=== PATIENT | male | born 1975 | race Two or more races ===

== ENCOUNTER 2023-06-02 22:17 | Inpatient (IN) | payer OTHER ==
[~2023-06-02] VITALS: Ht 162.6 cm; Wt 477.6 kg
[2023-06-02] MEDS ORDERED: 0.9 % SODIUM CHLORIDE 1,000 ML IV STA (22:36)
[2023-06-02] MEDS ORDERED: ZOFRAN8 MG (22:39)
[2023-06-02] MEDS ORDERED: CONZIP100 MG (22:40)
[2023-06-02] MEDS ORDERED: PERCOCET 5-3251 EACH (22:40)
[2023-06-02] MEDS ORDERED: PROTONIX40 MG (22:40)
[2023-06-02] MEDS ORDERED: FUROsemide 20 MG/2 ML VIAL IV SCH (23:34)
[2023-06-02] MEDS ORDERED: ONDANSETRON HCL 4 MG in 0.9 % SODIUM CHLORIDE 50 ML IV PRN (23:45)
[2023-06-02] MEDS ORDERED: 0.9 % SODIUM CHLORIDE 1,000 ML IV SCH (23:45)
[2023-06-02] MEDS ORDERED: ACETAMINOPHEN 500 MG GEL..CAP PO PRN (23:45)
[2023-06-03 00:40] LABS: INR 1.12; PARTIAL THROMBOPLASTIN TIME 26.3 SECONDS (22.0-34.0); PROTHROMBIN TIME 11.7 SECONDS (9.0-11.5)
[2023-06-03 00:44] LABS: ALBUMIN 2.5 gm/dL (3.4-5.0); BILIRUBIN TOTAL 0.32 mg/dL (0.3-1.2); CALCIUM 9.4 mg/dL (8.5-10.1); CREATININE SERUM 0.73 mg/dL (0.70-1.30); GFR 114.2; GLOBULINA 4.8 G/DL (2.4-3.5); POTASSIUM 4.37 mEq/L (3.5-5.1); TOTAL PROTEIN 7.3 gm/dL (6.4-8.2)
[2023-06-03 00:54] LABS: HEMATOCRIT 25.4 % (39.0-48.0); HEMOGLOBIN 8.1 g/dL (13-16.00); MEAN CELL VOLUME 93.1 fL (80.0-100.00); MEAN CORPUSCULAR HEMOGLOBIN 29.6 pg (27.00-32.0); MEAN CORPUSCULAR HGB CONC 31.8 g/dl (32.0-36.0); PLATELET COUNT 200 K/uL (150-450); RED BLOOD COUNT 2.73 M/uL (4.00-6.00); RED CELL DISTRIBUTION WIDTH 17.1 % (11.5-14.5)
[2023-06-03 01:24] LABS: PH,URINE 5.5 (5.0-8.0); URINE APPEARANCE Clear; URINE BILIRRUBIN Negative (NEGATIVE); URINE BLOOD Negative; URINE COLOR Yellow; URINE GLUCOSE Negative (NEGATIVE); URINE LEUKOCYTE Trace; URINE NITRATE Negative; URINE PROTEIN 30 (NEGATIVE)
[2023-06-03 01:27] LABS: URINE BACTERIA 17.6 uL (0.0-1933); URINE EPITHELIAL CELLS 9.8 uL (0.0-38.8); URINE RBC 8.6 uL (0.0-20.8); URINE WBC 13.1 uL (0.0-23.2)
[2023-06-03] MEDS ORDERED: IRON FUM,PS/FOLIC/BCOMP,C NO.9 1 CAP CAPSULE PO SCH (09:00)
[2023-06-03] MEDS ORDERED: PANTOPRAZOLE SODIUM 40 MG/VIAL VIAL IV SCH (09:00)
[2023-06-03] MEDS ORDERED: FUROsemide 20 MG/2 ML VIAL IV SCH (09:00)
[2023-06-03] MEDS ORDERED: ALBUMIN HUMAN 5% 0.05GM/ML (250ML) VIAL IV SCH (09:00)
[2023-06-03] MEDS ORDERED: ALBUMIN HUMAN IV SCH (17:00)
[2023-06-03] MEDS ORDERED: SPIRONOLACTONE 25 MG TABLET PO SCH (17:00)
[2023-06-03 20:58] LABS: ALBUMIN 1.5 gm/dL (3.4-5.0); TP PERITONEAL FLUID 3.4 g/dl
[2023-06-04] MEDS ORDERED: LACTULOSE 10 G/15 ML ML RECTAL ONE ×2 (07:30→09:15)
[2023-06-04] MEDS ORDERED: POLYETHYLENE GLYCOL 3350 17 GM BLIST.PACK PO SCH (09:00)
[2023-06-04 12:24] LABS: HEMATOCRIT 34.1 % (39.0-48.0); HEMOGLOBIN 11.3 g/dL (13-16.00); MEAN CELL VOLUME 91.4 fL (80.0-100.00); MEAN CORPUSCULAR HEMOGLOBIN 30.2 pg (27.00-32.0); PLATELET COUNT 190 K/uL (150-450); RED BLOOD COUNT 3.73 M/uL (4.00-6.00); RED CELL DISTRIBUTION WIDTH 16.4 % (11.5-14.5)
[2023-06-04] MEDS ORDERED: LACTULOSE 10 G/15 ML ML PO ONE (18:00)
[2023-06-04 18:20] LABS: ob POSITIVE (NEGATIVE)
[2023-06-04] MEDS ORDERED: SOD FERRIC GLUC COMPLX/SUCROSE 62.5 MG/5 ML AMPUL IV SCH (19:47)
[2023-06-04] MEDS ORDERED: TRAMADOL HCL 50 MG TABLET PO PRN (20:15)
[2023-06-04] MEDS ORDERED: fentaNYL 25 MCG PATCH.TD72 TD SCH (20:15)
[2023-06-05 07:01] LABS: HEMATOCRIT 29.7 % (39.0-48.0); MEAN CELL VOLUME 89.1 fL (80.0-100.00); MEAN CORPUSCULAR HEMOGLOBIN 29.9 pg (27.00-32.0); MEAN CORPUSCULAR HGB CONC 33.5 g/dl (32.0-36.0); PLATELET COUNT 184 K/uL (150-450); RED BLOOD COUNT 3.34 M/uL (4.00-6.00); RED CELL DISTRIBUTION WIDTH 16.8 % (11.5-14.5)
[2023-06-05] MEDS ORDERED: FUROsemide 20 MG TABLET PO SCH (09:00)
[2023-06-05] MEDS ORDERED: PROTEINEX-18 LI30 ML PO (11:06)
[2023-06-05] MEDS ORDERED: SPIRONOLACTONE25 MG PO (11:06)
[2023-06-05] MEDS ORDERED: MIRALAX510 GM PO (11:06)
[2023-06-05] MEDS ORDERED: LASIX20 MG PO (11:06)
== END 2023-06-05 13:29 | disposition home or self-care (01) | DRG 812 ==
LOC: ER 22:17 → SEC-K 23:37 → EDBD 23:37 → SURH 06-03 21:16 → SEC-K 06-03 21:21 → SURH 06-04 17:39
PROVIDERS: Emergency Medicine; General Practice; Radiology Vascular & Interventional Radiology; ADMIT Internal Medicine; ATTEND Internal Medicine
PROC: 0W9G3ZX Drainage of Peritoneal Cavity, Percutaneous Approach, Diagnostic (ICD-10-PCS; principal; 2023-06-03)
PROC: 30233N1 Transfusion of Nonautologous Red Blood Cells into Peripheral Vein, Percutaneous Approach (ICD-10-PCS; 2023-06-03)
DX: D64.9 Anemia, unspecified (principal); R18.8 Other ascites; C16.9 Malignant neoplasm of stomach, unspecified

== ENCOUNTER 2023-06-30 16:12 | Inpatient (IN) | payer OTHER ==
[~2023-06-30] VITALS: Ht 162.6 cm; Wt 49.0 kg
[~2023-06-30 16:12] MED LIST: CONZIP100 MG; LASIX20 MG PO; MIRALAX510 GM PO; PERCOCET 5-3251 EACH; PROTEINEX-18 LI30 ML PO; PROTONIX40 MG; SPIRONOLACTONE25 MG PO; ZOFRAN8 MG
[2023-06-30] MEDS ORDERED: TRAMADOL HCL E100 M1 PO (16:15)
[2023-06-30] MEDS ORDERED: PERCOCET 10-321 EACH (16:15)
[2023-06-30] MEDS ORDERED: PROTONIX20 MG PO (16:15)
--- NOTE | 2023-06-30 16:16 | NUR ---
SE RECIBE PTE ALERTA Y ORIENTADO X3 EL MISMO REFIERE PADECER DE CANCER DE [place] Y DR MORRIS ATENDERLO EN [facility], AL MOMENTO PRESENTA DEBILIDAD , SE OBSERVA CANALIZACION EN BRAZO DERECHO #20 POR DONDE TIENE IVFLUID POR AMBULANCIA. SE COLOCA PACIENTE EN CAMA EN CUARTO DE ISO EN ER, SE REALIZA EKG POR RN CANCER Y SE PRESENTA A DR MCMAHON.
--- NOTE | 2023-06-30 16:27 | NUR ---
RN MARY JUNTO A RN CANCER EDUCA A PTE SOBRE TX A RECIBIR EN EL AREA, SE REALIZAN MUESTRAS RONAK ORDEN MEDICA Y SE COLOCA IVFLUID RONAK ORDEN MEDICA. SE APPLE PTE EN AREA EN ESPERA DE SEGUIMIENTO Y RESULTADOS.
[2023-06-30] MEDS ORDERED: MULTIVIT INFUSN ADULT K IV SCH (16:30)
[2023-06-30] MEDS ORDERED: RINGERS LACTATED IV SCH (16:30)
[2023-06-30 17:47] LABS: HEMATOCRIT 37.4 % (39.0-48.0); HEMOGLOBIN 12.5 g/dL (13-16.00); MEAN CELL VOLUME 87.5 fL (80.0-100.00); MEAN CORPUSCULAR HEMOGLOBIN 29.3 pg (27.00-32.0); MEAN CORPUSCULAR HGB CONC 33.5 g/dl (32.0-36.0); RED BLOOD COUNT 4.28 M/uL (4.00-6.00); RED CELL DISTRIBUTION WIDTH 17.2 % (11.5-14.5)
[2023-06-30 17:48] LABS: PLATELET COUNT 47 K/uL (150-450)
[2023-06-30 17:50] LABS: INR 1.27; PROTHROMBIN TIME 13.1 SECONDS (9.0-11.5)
[2023-06-30 18:10] LABS: CALCIUM 7.9 mg/dL (8.5-10.1); CREATININE SERUM 0.32 mg/dL (0.70-1.30); GFR 294.57; POTASSIUM 3.89 mEq/L (3.5-5.1)
[2023-06-30] MEDS ORDERED: ONDANSETRON HCL 4 MG in 0.9 % SODIUM CHLORIDE 50 ML IV PRN (19:00)
[2023-06-30] MEDS ORDERED: ACETAMINOPHEN 500 MG GEL..CAP PO PRN (19:00)
[2023-06-30] MEDS ORDERED: OxyCODONE HCL/APAP UD (PERCOCET) PO PRN (19:00)
[2023-06-30] MEDS ORDERED: 0.9 % SODIUM CHLORIDE 1,000 ML IV SCH (19:00)
[2023-06-30 23:21] LABS: PH,URINE 5.5 (5.0-8.0); URINE APPEARANCE Error; URINE BILIRRUBIN Negative (NEGATIVE); URINE BLOOD Negative; URINE COLOR Yellow; URINE GLUCOSE Negative (NEGATIVE); URINE LEUKOCYTE Negative; URINE NITRATE Negative; URINE PROTEIN Trace (NEGATIVE); URINE UROBILINOGEN 0.2 E.U./dl
[2023-06-30 23:26] LABS: URINE EPITHELIAL CELLS 3.3 uL (0.0-38.8); URINE RBC 5.6 uL (0.0-20.8); URINE WBC 4.7 uL (0.0-23.2)
[2023-07-01] MEDS ORDERED: FUROsemide 20 MG/2 ML VIAL IV SCH (09:00)
[2023-07-01] MEDS ORDERED: SOD FERRIC GLUC COMPLX/SUCROSE 62.5 MG in 0.9 % SODIUM CHLORIDE 50 ML IV SCH (09:00)
[2023-07-01] MEDS ORDERED: CYANOCOBALAMIN (VITAMIN B-12) 1,000 MCG/ML VIAL IM SCH (09:00)
[2023-07-01] MEDS ORDERED: ALBUMIN HUMAN 0.25GM/ML (50ML) VIAL IV SCH ×2 (09:00)
[2023-07-01] MEDS ORDERED: PANTOPRAZOLE SODIUM 40 MG/VIAL VIAL IV SCH (09:00)
[2023-07-01 16:44] LABS: HEMATOCRIT 38.5 % (39.0-48.0); HEMOGLOBIN 12.8 g/dL (13-16.00); MEAN CELL VOLUME 89.3 fL (80.0-100.00); MEAN CORPUSCULAR HEMOGLOBIN 29.6 pg (27.00-32.0); MEAN CORPUSCULAR HGB CONC 33.2 g/dl (32.0-36.0); PLATELET COUNT 160 K/uL (150-450); RED BLOOD COUNT 4.31 M/uL (4.00-6.00); RED CELL DISTRIBUTION WIDTH 17.3 % (11.5-14.5)
[2023-07-01] MEDS ORDERED: fentaNYL 25 MCG PATCH.TD72 TD SCH (19:58)
[2023-07-02] MEDS ORDERED: ZINC OXIDE 30 GM TUBE TOP SCH (17:00)
[2023-07-02] MEDS ORDERED: NYSTATIN 30 GM CREAM.GM. TOP SCH (17:00)
[2023-07-02] MEDS ORDERED: NYSTATIN 30 GM,SILVER SULFADIAZINE 50 GM,ZINC OXIDE 30 GM TOP SCH (17:00)
[2023-07-02] MEDS ORDERED: SILVER SULFADIAZINE 50 GM JAR TOP SCH (17:00)
== END 2023-07-03 08:50 | disposition expired | DRG 641 ==
LOC: ER 16:13 → SURH 20:08
PROVIDERS: Emergency Medicine; ADMIT Internal Medicine; ATTEND Internal Medicine
PROC: 30233R1 Transfusion of Nonautologous Platelets into Peripheral Vein, Percutaneous Approach (ICD-10-PCS; principal; 2023-07-01)
DX: E86.0 Dehydration (principal); C16.9 Malignant neoplasm of stomach, unspecified; E46 Unspecified protein-calorie malnutrition; R18.0 Malignant ascites; D69.6 Thrombocytopenia, unspecified; R13.10 Dysphagia, unspecified; D63.0 Anemia in neoplastic disease